=== PATIENT | male | born 1945 | race Caucasian/White ===

== ENCOUNTER 2018-11-07 09:32 | Outpatient (CLI) | payer OTHER ==
--- NOTE | 2018-11-07 11:11 | ULT ---
RIGHT UPPER QUADRANT ULTRASOUND: History: Abnormal function tests. FINDINGS: Gallbladder has a normal appearance. No stones are evident. Common duct is 0.5 cm. Liver is diffusely echogenic without focal mass or infrahepatic biliary dilatation. No free fluid. IMPRESSION: 1. No evidence of gallstones or biliary obstruction. 2. Hepatosteatosis. POS: [facility]
== END 2018-11-07 09:33 | disposition home or self-care (01) ==
LOC: BICULT 09:32
PROVIDERS: ATTEND Student in an Organized Health Care Education/Training Program
DX: R94.5 Abnormal results of liver function studies (principal); K76.0 Fatty (change of) liver, not elsewhere classified
CPT/HCPCS: 76705

== ENCOUNTER 2019-08-06 09:40 | Outpatient (CLI) | payer OTHER ==
--- NOTE | 2019-08-06 12:46 | RAD ---
CHEST 2 VIEWS: HISTORY: Other pneumonia. FINDINGS: Right pleural effusion with patchy parenchymal changes in the right lower lobe, evidence for pneumoni a and/or atelectasis. Patchy increased linear interstitial markings in the left chest. Heart size i s normal. Biapical pleural thickening. IMPRESSION: Evidence for right pleural effusion as well as some parenchymal changes in the right lower lobe. Ath erosclerosis of the aorta. Old granulomatous disease. Biapical pleural thickening. Continued short -term followup for complete clearing. POS: [facility]
== END 2019-08-06 09:41 | disposition home or self-care (01) ==
LOC: BICRAD 09:40
PROVIDERS: ATTEND Student in an Organized Health Care Education/Training Program
DX: J18.8 Other pneumonia, unspecified organism (principal); J90 Pleural effusion, not elsewhere classified; I70.0 Atherosclerosis of aorta; J92.9 Pleural plaque without asbestos
CPT/HCPCS: 71046